=== PATIENT | female | born 1955 | race Caucasian/White ===

== ENCOUNTER 2017-04-09 00:21 | Emergency (ER) | payer OTHER ==
[2017-04-09 00:34] VITALS: BP 175/97; PULSE 82; RESP 18; TEMP 98.4; O2SAT 96
--- NOTE | 2017-04-09 05:21 | PD ---
HPI Chief Complaint: Fall Time Seen by Provider: 04:54 Travel History International Travel<30 days: No Contact w/Intl Traveler<30days: No Traveled to known affect area: No History of Present Illness HPI 61 yo F, fell approximately 7 hours ago, striking the nasal bridge causing epistaxis and a nose laceration. No LOC, N/V or neurologic complaint. Pt drank alcohol earlier in the evening. No anticoagulant. Bleeding resolved prior to ER evaluation. PFSH Past Medical History Medical History: Denies Significant Hx Diminished Hearing: No Past Surgical History Hysterectomy: Yes Social History Alcohol Use: Yes (OCCASIONALLY ) Tobacco Use: No Substance Use: No Allergies-Medications (Allergen,Severity, Reaction): Coded Allergies: No Known Allergies (Unverified , 04/09/17) Reported Meds & Prescriptions Reported Meds & Active Scripts Active No Active Prescriptions or Reported Medications Review of Systems Except as stated in HPI: all other systems reviewed are Neg Physical Exam Narrative GENERAL: 61 yo M, WNWD, NAD SKIN: Warm and dry. Approx 1.5cm laceration curvilinear nasal bridge. HEAD: Atraumatic. Normocephalic. EYES: Pupils equal and round. No scleral icterus. No injection or drainage. ENT: No nasal bleeding or discharge. Mucous membranes pink and moist. No septal hematoma. NECK: Trachea midline. No JVD. CARDIOVASCULAR: Regular rate and rhythm. RESPIRATORY: No accessory muscle use. Clear to auscultation. Breath sounds equal bilaterally. GASTROINTESTINAL: Abdomen soft, non-tender, nondistended. Hepatic and splenic margins not palpable. MUSCULOSKELETAL: Extremities without clubbing, cyanosis, or edema. No obvious deformities. NEUROLOGICAL: Awake and alert. No obvious cranial nerve deficits. Motor grossly within normal limits. Five out of 5 muscle strength in the arms and legs. Normal speech. PSYCHIATRIC: Appropriate mood and affect; insight and judgment normal. Data Data Last Documented VS Vital Signs Date Time Temp Pulse Resp B/P Pulse Ox O2 Delivery O2 Flow Rate FiO2 04/09/17 00:34 98.4 82 18 175/97 96 Room Air VS reviewed Orders Nasal Bones (Min 3 Vws) (04/09/17 ) MDM Medical Decision Making Medical Screen Exam Complete: Yes Emergency Medical Condition: Yes Differential Diagnosis septal hematoma, laceration, epistaxis Narrative Course Laceration repaired by PA. Pt ok for discharge. Diagnosis Primary Impression: Contusion of nose Qualified Code: S00.33XA - Contusion of nose, initial encounter Additional Impressions: Epistaxis Laceration of nose Qualified Code: S01.21XA - Laceration of nose, initial encounter Referrals: Plastic Surgeon 1 week Additional Instructions: You have a choice when it comes to health care, and we are glad that you chose [email or web address]. Hopefully, we have met your expectations on today's visit. You are welcome to return to [email or web address] at any time, as we are committed to meeting the health care needs of our community. Med/Other Pt SpecificInfo: No Change to Meds Scripts No Active Prescriptions or Reported Meds Disposition: DISCHARGE HOME Condition: Stable Shawn Hurst MD Apr 09, 2017 05:21
--- NOTE | 2017-04-09 05:39 | PD ---
Physical Exam Narrative I was asked by Dr. Hurst to repair patient's nasal laceration. Please see his documentation for full H&P. Data Data Last Documented VS Vital Signs Date Time Temp Pulse Resp B/P Pulse Ox O2 Delivery O2 Flow Rate FiO2 04/09/17 00:34 98.4 82 18 175/97 96 Room Air [facility] Supervised Visit with WOODY: No Narrative Course The patient suffered lacerations to the face. The laceration appeared clean and approximated well. There was no evidence to suggest foreign bodies. Visual and tactile exams were unremarkable. There was no evidence of neurovascular injury as well. The patient was irrigated with copious sterile normal saline and primary repair was performed using Steri-Strips and Dermabond. Please see procedure note. The patient was given signs and symptom warnings for infection, such as increasing pain, redness, swelling, associated heat, pus or fever. The patient was given instructions for timely follow up. The patient agreed with plan of care Procedures Procedure Narrative LACERATION REPAIR LOCATION: Nasal bridge LENGTH: Roughly 1 cm NUMBER OF STITCHES/ANNA: Steri-Strips and Dermabond REPAIR: Verbal consent was obtained. The area of the laceration was cleaned and prepped. The wound was copiously irrigated and explored without evidence of foreign body, bony involvement, ligament injury, tendon injury, or neurovascular injury. The wound was closed using Steri-Strips and Dermabond. This was a single layer repair. The patient was advised to keep the affected area as clean and dry as possible using soap and water. There were no complications. Patient tolerated the procedure well. Diagnosis Primary Impression: Contusion of nose Qualified Code: S00.33XA - Contusion of nose, initial encounter Additional Impressions: Epistaxis Laceration of nose Qualified Code: S01.21XA - Laceration of nose, initial encounter Referrals: Plastic Surgeon 1 week Patient Instructions: General Instructions Departure Forms: Tests/Procedures Additional Instruction: You have a choice when it comes to health care, and we are glad that you chose [facility]. Hopefully, we have met your expectations on today's visit. You are welcome to return to [facility] at any time, as we are committed to meeting the health care needs of our community. Scripts No Active Prescriptions or Reported Meds Disposition: DISCHARGE HOME Condition: Stable Patrice Kaye Apr 09, 2017 05:39
== END 2017-04-09 05:50 | disposition home or self-care (01) ==
LOC: EDSEX 00:21 → NEPE 00:21
DX: S01.21XA Laceration without foreign body of nose, initial encounter (principal); R04.0 Epistaxis; W18.00XA Striking against unspecified object with subsequent fall, initial encounter
CPT/HCPCS: 12011